=== PATIENT | male | born 1950 | race Caucasian/White ===

== ENCOUNTER 2018-11-06 12:49 | Emergency (ER) | payer OTHER, SELFPAY ==
[2018-11-06] VITALS (66 sets, daily range): BP systolic 91–120; BP diastolic 44–81; PULSE 76–94; RESP 14–34; TEMP 37; O2SAT 92–98
[2018-11-06 13:13] LABS: Lactate 1.7 mmol/L (0.6-1.4)
[2018-11-06 13:14] LABS: Abs Immature Grans 0.02 k/cumm (0.0-0.09); Absolute Basophil Count 0.01 k/cumm (0.0-0.2); Absolute Lymphocyte Count 0.35 k/cumm (1.2-3.4); Absolute Monocyte Count 1.08 k/cumm (0.11-0.7); Absolute Neutrophil Count 12.58 k/cumm (1.2-6.7); Basophils % 0.1; Eosinophils % 0.1; HCT 42.4 % (40.0-50.0); Immature Grans % 0.1; Lymphocytes % 2.5; Mean Corpuscular Hemoglobin 27.2 pg (27.0-33.0); Mean Corpuscular Volume 82.3 fL (80-95); Mean Platelet Volume 9.1 fL (8.0-11.0); Monocytes % 7.7; Neutrophils % 89.5; Platelet Count 304 x1000/uL (130-400); RBC 5.15 m/cumm (4.50-6.00); RBC Distribution Width 16.1 % (11.8-14.1); White Blood Cell Count 14.06 k/cumm (4.4-10.8)
[2018-11-06 13:15] LABS: Absolute Eosinophil Count 0.01 k/cumm (0.0-0.7)
[2018-11-06 13:29] LABS: ALT 22 U/L (12-78); AST 19 U/L (15-37); Alkaline Phosphatase 141 U/L (46-116); Anion Gap 11.5 mmol/L (3-11); BUN 36 mg/dL (7-18); Bilirubin, Total 0.7 mg/dL (0.2-1.0); CO2 27.5 mmol/L (21.0-32.0); CREATININE 1.35 mg/dL (0.70-1.30); Calcium 9.7 mg/dL (8.5-10.1); Chloride 96 mmol/L (98-107); Glucose 118 mg/dL (70-100); Lipase 73 U/L (73-393); Potassium 3.7 mmol/L (3.5-5.1); Sodium 135 mmol/L (136-145); Total Protein 8.6 g/dL (6.4-8.2)
[2018-11-06 13:31] LABS: Bilirubin Negative (Negative); Blood Small (Negative); Clarity Sl Cloudy; Glucose Negative (Negative); Ketones Negative (Negative); Leukocyte Esterase Small (Negative); Nitrite Negative (Negative); Urobilinogen 0.2 EU/dL (Up TO 0.2)
[2018-11-06 13:43] LABS: Bacteria Moderate HPF (Negative); C & S Indicated? Yes; Casts Negative LPF (Negative); Crystals Negative HPF (Negative); Epithelial Cells Few HPF (Negative); Mucus Moderate (Negative); Other Cells Few Renal (Negative); RBC 0-2 (0-2); WBC >50 HPF (0-5)
[2018-11-06 13:57] LABS: D-Dimer 3788 ng/mlFEU (<500)
--- NOTE | 2018-11-06 14:27 | DI.CT_ITS ---
SYMPTOMS/DIAGNOSIS: SHORTNESS OF BREATH, HYPOXIA, RUQ PAIN CT SCAN OF THE CHEST, ABDOMEN AND PELVIS: CT SCAN OF THE ABDOMEN AND PELVIS: The liver is normal in size. No evidence of a hepatic mass is seen. The portal, superior mesenteric and splenic veins are patent. The gallbladder is distended. There is gallbladder wall thickening and pericholecystic inflammatory changes. There are stones seen within the gallbladder. There is a stone which appears to lie in the cystic duct. The pancreas is unremarkable, as are the spleen and adrenal glands. The kidneys show normal and symmetric enhancement. There is a nonobstructing stone in the mid pole of the right kidney. There is mild prominence of the right renal collecting system, but no ureteral stone is present. The urinary bladder is intact. The reproductive organs are unremarkable. There is a large amount of stool in the colon, suggesting constipation. No evidence of bowel obstruction, inflammation or infection. The aorta is of normal caliber. No significant abdominal or pelvic adenopathy, ascites or pneumoperitoneum is present. Degenerative changes are seen in the spine. IMPRESSION: Cholelithiasis with findings suggestive of acute cholecystitis. CT SCAN OF THE CHEST: CT angiography was performed with multi slice acquisition and multi planar and 3D reconstruction. CT scan of the chest is performed according to the pulmonary embolus protocol. There is no evidence of a pulmonary embolus. The thoracic aorta is of normal caliber. No aneurysm or dissection is seen. The heart size is within normal limits. No significant pericardial effusion is seen. No evidence of right ventricular dysfunction is seen. No mediastinal adenopathy is present. No pleural effusion or pneumothorax is identified. Dependent atelectatic changes are seen in the bases. No focal consolidating infiltrates are seen. The tracheobronchial tree is unremarkable. Degenerative changes are seen in the spine. IMPRESSION: No evidence of a pulmonary embolus, thoracic aortic dissection or aneurysm.
[2018-11-06] MEDS: Normal Saline 1,000 ML 1000 ML IV (15:00)
--- NOTE | 2018-11-06 15:28 | W.ED.GENAD ---
Discharge Plan Disposition Patient Disposition: [facility] Condition: Stable Discharge Details Chief Complaint: Abd Prob Clinical Impression: Acute cholecystitis Reason For Visit: RUQ pain Primary Care Provider: Unknown,Unknown ED Provider: Darci Lake Home Meds and New Rx's Prescriptions: No Action melatonin 3 MG tablet 3 mg PO HS RF: 0 pantoprazole [Protonix] 40 MG tablet,delayed release (DR/EC) 40 mg PO DAILY RF: 0 nitroglycerin 0.4 MG tablet, sublingual 0.4 mg Sublingual RF: 0 oxycodone-acetaminophen [Percocet] 1 EACH tablet 1 tab-cap PO Q4H PRN RF: 0 meclizine 25 MG tablet,chewable 25 mg PO QID RF: 0 SENNA S TABLET 1 EACH tablet 2 tab-cap PO BID RF: 0 atorvastatin 40 mg Tablet 40 mg PO DAILY RF: 0 acetaminophen 325 mg Tablet 650 mg PO Q4H PRN PRNRF: 0 carvedilol 6.25 mg Tablet 6.25 mg PO BID RF: 0 amlodipine [Norvasc] 5 mg Tablet 5 mg PO DAILY RF: 0 docusate sodium 100 mg Capsule 100 mg PO BID RF: 0 gabapentin 300 mg Capsule 300 mg PO HS RF: 0 gabapentin 100 mg Capsule 100 mg PO BID RF: 0 Maalox Maximum Strength 400-400-40 mg/5 mL Suspension 30 ml PO Q6H PRN PRNRF: 0 Discharge Data Discharge Date/Time-TO BE ENTERED AT DEPARTURE: 11/06/18 21:11 Medical Decision Making <Jadon Moreland NP - Last Filed: 11/09/18 11:12> Patient presenting to the emergency department for chief complaint of right upper quadrant pain. Patient states that he has been uncomfortable for the past 4 days and has not been improving. Patient does state also some shortness of breath and cough that has also been going on during the same timeframe. Patient reports not being able to get out of bed and being pretty immobile for this amount of time as well. Physical exam shows stable nontoxic patient with vital signs showing slight hypoxia, right lower lung rhonchi with diminished bilateral lung sounds in lower mata, right upper quadrant tenderness without obvious Olvera sign but diffuse pain making it difficult to fully assess. Plan to check labs, give IV fluids. Patient does state fever but no fever is present at this time. Review of labs does show a leukocytosis with some shift, positive d-dimer, mildly elevated lactate, otherwise nondiagnostic labs. Review of urinalysis does show signs of urinary tract infection but before antibiotic choice plan to rule out pneumonia as I feel that this may change which antibiotic I would use for urinary tract. Pending CTA of chest and abdomen pelvis with contrast care of patient was transferred to Dr. Shan Lake for further treatment, stabilization, and disposition as needed per HPI <Jadon Moreland NP - Last Filed: 11/09/18 11:12> General Mode of arrival: EMS. Date/Time Provider Initiated Documentation: 11/06/18 12:55. Limitations to Documentation: no limitations. Information obtained by: patient and RN notes reviewed. History of Present Illness 68 year old M presents to the emergency department with the chief complaint of Right upper quadrant pain, described as moderate, with intensity rated at 6. Quality is described as aching, and is localized to the abdomen. Patient started experiencing this day(s) (4) and it has been constant. No relieving factors improve symptom(s), Related Data Home Medications Medication Instructions Recorded Confirmed Senna S Tablet 2 tab-cap PO BID tab-cap 03/28/18 11/06/18 meclizine 25 mg PO QID tab-cap 03/28/18 11/06/18 melatonin 3 mg PO HS 03/28/18 11/06/18 nitroglycerin 0.4 mg SUBLINGUAL 03/28/18 oxycodone-acetaminophen [Percocet 1 tab-cap PO Q4H PRN tab-cap 03/28/18 11/06/18 7.5-325 Mg Tablet] pantoprazole [Protonix] 40 mg PO DAILY tab-cap 03/28/18 11/06/18 acetaminophen 650 mg PO Q4H PRN PRN 11/06/18 11/06/18 alum-mag hydroxide-simeth [Maalox 30 ml PO Q6H PRN PRN 11/06/18 11/06/18 Maximum Strength] amlodipine [Norvasc] 5 mg PO DAILY 11/06/18 11/06/18 atorvastatin 40 mg PO DAILY 11/06/18 11/06/18 carvedilol 6.25 mg PO BID 11/06/18 11/06/18 docusate sodium 100 mg PO BID 11/06/18 11/06/18 gabapentin 100 mg PO BID 11/06/18 11/06/18 gabapentin 300 mg PO HS 11/06/18 11/06/18 Allergies Allergy/AdvReac Type Severity Reaction Status Date / Time hydrochlorothiazide Allergy Unknown Unverified 03/28/18 10:24 tuna oil Allergy Unverified 11/06/18 12:57 General Stated Complaint: Abd Prob MEGAN: 3 Review of Systems <Jadon Moreland NP - Last Filed: 11/09/18 11:12> Constitutional Denies chills, Denies fever(s) and Reports poor appetite Cardiovascular Denies chest pain and Reports dyspnea Respiratory Reports cough and Reports dyspnea Gastrointestinal Reports as per HPI, Reports abdominal pain, Denies melena, Denies change in bowel habits, Reports constipation, Denies diarrhea, Denies nausea and Denies vomiting Genitourinary Denies hematuria, Denies difficulty urinating, Denies urinary hesitancy, Denies urinary incontinence and Denies urinary urgency Integumentary/Breasts Denies rash PFSH <Jadon Moreland NP - Last Filed: 11/09/18 11:12> Medical History AMI (acute myocardial infarction) Bladder cancer CAD (coronary artery disease) History of throat cancer Hyperlipidemia Ischemic cardiomyopathy MELANY (obstructive sleep apnea) Psoriasis Surgical History Cholecystectomy Family History Mother Neoplasm Father No problems noted. Sister No problems noted. Social History Smoking and Tabacco status: Former Tobacco Use Exam <Jadon Moreland NP - Last Filed: 11/09/18 11:12> Const General: cooperative Orientation: alert, awake and oriented x3 Resp Effort & Inspection: normal respiratory effort and able to speak in complete sentences Auscultation: rhonchi right lower Cardio Rate: regular rate Rhythm: regular rhythm Heart Sounds: S1 normal and S2 normal GI Palpation: soft, no hepatosplenomegaly, not firm, no guarding, no masses, no pulsatile masses, not rigid, no splenomegaly and tender in the RUQ; not at McBurney's point and Rovsing's sign negative Auscultation: normal bowel sounds Back/Spine/Pelvis Back: no CVA tenderness Neuro General: alert, awake, oriented x3, gait normal and moves all extremities Course <Jadon Moreland FELLING MACHINE OPERATOR - Last Filed: 11/09/18 11:12> Vital Signs Temperature 37 C 11/06/18 12:51 Pulse 88 11/06/18 12:51 Respiratory Rate 14 11/06/18 12:51 Blood Pressure 108/65 11/06/18 12:51 Pulse Oximetry 93 L 11/06/18 12:51 Temperature 37 C 11/06/18 12:51 Temperature Source Temporal Artery Scan 11/06/18 12:51 Pulse 88 11/06/18 12:51 Respiratory Rate 14 11/06/18 12:51 Respiratory Effort Non-Labored 11/06/18 13:01 Blood Pressure 108/65 11/06/18 12:51 Pulse Oximetry 93 L 11/06/18 12:51 Oxygen Delivery Method Room Air 11/06/18 12:51 Oxygen Flow Rate 0 11/06/18 12:51 Pain Level 8 11/06/18 13:01 Lab/Test Results Lab/Test Results: 11/06/18 13:25 Urine - Reflex from Ua Urine Culture - Pending Laboratory Tests Range/Units 11/06/18 11/06/18 11/06/18 13:00 13:00 13:00 WBC (4.4-10.8) k/cumm 14.06 H RBC (4.50-6.00) m/cumm 5.15 Hgb (13.5-17.5) g/dL 14.0 Hct (40.0-50.0) % 42.4 MCV (80-95) fL 82.3 MCH (27.0-33.0) pg 27.2 MCHC (32.0-36.0) g/dL 33.0 RDW (11.8-14.1) % 16.1 H Plt Count (130-400) x1000/uL 304 MPV (8.0-11.0) fL 9.1 Immature Gran % 0.1 Neutrophils % 89.5 Lymphocytes % 2.5 Monocytes % 7.7 Eosinophils % 0.1 Basophils % 0.1 Absolute Neutrophils (1.2-6.7) k/cumm 12.58 H Absolute Lymphocytes (1.2-3.4) k/cumm 0.35 L Absolute Monocytes (0.11-0.7) k/cumm 1.08 H Absolute Eosinophils (0.0-0.7) k/cumm 0.01 Absolute Basophils (0.0-0.2) k/cumm 0.01 D-Dimer (<500) ng/mlFEU Sodium (136-145) mmol/L 135 L Potassium (3.5-5.1) mmol/L 3.7 Chloride (98-107) mmol/L 96 L Carbon Dioxide (21.0-32.0) mmol/L 27.5 Anion Gap (3-11) mmol/L 11.5 H BUN (7-18) mg/dL 36 H Creatinine (0.70-1.30) mg/dL 1.35 H Estimated GFR/1.73 m2 (mL/min/1.73m2) 52.40 Glucose (70-100) mg/dL 118 H Lactate (0.6-1.4) mmol/L 1.7 H Calcium (8.5-10.1) mg/dL 9.7 Total Bilirubin (0.2-1.0) mg/dL 0.7 AST (15-37) U/L 19 ALT (12-78) U/L 22 Alkaline Phosphatase (46-116) U/L 141 H Total Protein (6.4-8.2) g/dL 8.6 H Albumin (3.4-5.0) g/dL 3.0 L Lipase (73-393) U/L 73 Urine Color (Yellow) Urine Clarity Urine pH (5-8) Ur Specific Shorter (1.005-1.025) Urine Protein (Negative) mg/dL Urine Ketones (Negative) mg/dL Urine Blood (Negative) Urine Nitrite (Negative) Urine Bilirubin (Negative) Urine Urobilinogen (Up TO 0.2) EU/dL Ur Leukocyte Esterase (Negative) Urine RBC (0-2) Urine WBC (0-5) HPF Ur Epithelial Cells (Negative) HPF Urine Crystals (Negative) HPF Urine Bacteria (Negative) HPF Urine Casts (Negative) LPF Urine Mucus (Negative) Urine Other (Negative) Ur Culture Indicated? Urine Glucose (Negative) mg/dL Range/Units 11/06/18 11/06/18 11/06/18 13:00 13:03 13:25 WBC (4.4-10.8) k/cumm RBC (4.50-6.00) m/cumm Hgb (13.5-17.5) g/dL Hct (40.0-50.0) % MCV (80-95) fL MCH (27.0-33.0) pg MCHC (32.0-36.0) g/dL RDW (11.8-14.1) % Plt Count (130-400) x1000/uL MPV (8.0-11.0) fL Immature Gran % Neutrophils % Lymphocytes % Monocytes % Eosinophils % Basophils % Absolute Neutrophils (1.2-6.7) k/cumm Absolute Lymphocytes (1.2-3.4) k/cumm Absolute Monocytes (0.11-0.7) k/cumm Absolute Eosinophils (0.0-0.7) k/cumm Absolute Basophils (0.0-0.2) k/cumm D-Dimer (<500) ng/mlFEU 3788 H Sodium (136-145) mmol/L Potassium (3.5-5.1) mmol/L Chloride (98-107) mmol/L Carbon Dioxide (21.0-32.0) mmol/L Anion Gap (3-11) mmol/L BUN (7-18) mg/dL Creatinine (0.70-1.30) mg/dL Estimated GFR/1.73 m2 (mL/min/1.73m2) Glucose (70-100) mg/dL Lactate (0.6-1.4) mmol/L Calcium (8.5-10.1) mg/dL Total Bilirubin (0.2-1.0) mg/dL AST (15-37) U/L ALT (12-78) U/L Alkaline Phosphatase (46-116) U/L Total Protein (6.4-8.2) g/dL Albumin (3.4-5.0) g/dL Lipase (73-393) U/L Cancelled Urine Color (Yellow) Yellow Urine Clarity Sl cloudy Urine pH (5-8) 6.0 Ur Specific Shorter (1.005-1.025) 1.020 Urine Protein (Negative) mg/dL 100 H Urine Ketones (Negative) mg/dL Negative Urine Blood (Negative) Small H Urine Nitrite (Negative) Negative Urine Bilirubin (Negative) Negative Urine Urobilinogen (Up TO 0.2) EU/dL 0.2 Ur Leukocyte Esterase (Negative) Small H Urine RBC (0-2) 0-2 Urine WBC (0-5) HPF >50 Ur Epithelial Cells (Negative) HPF Few Urine Crystals (Negative) HPF Negative Urine Bacteria (Negative) HPF Moderate Urine Casts (Negative) LPF Negative Urine Mucus (Negative) Moderate Urine Other (Negative) Few renal Ur Culture Indicated? Yes Urine Glucose (Negative) mg/dL Negative Sign Out <Jadon Moreland NP - Last Filed: 11/09/18 11:12> Sign Out Data: Sign Out Comment: Patient signed out to Dr. Shan Lake pending results of CTA abdomen pelvis scan for concern of right upper quadrant pain, positive d-dimer, shortness of breath and hypoxia. Review of labs does show UTI and leukocytosis with concern of shift. Last updated by Jadon Moreland NP at 11/06/18 16:12 Post-Handoff Eval: pt remains stable, CT chest shows no acute findings, ct abd/pelvis shows acute cholecystitis. We are full here and [facility] Dr. Ulloa is the accepting provider. Pt's [facility] from [facility] which he confirms but also states comfort measures only. Pt is caox4 and has capacity to make his own decisions and states he is not comfort measures and is okay with abx and also surgery if needed
[2018-11-06] MEDS: Omnipaque 350 MG/ML 100 ML BTL IJ (16:01)
[2018-11-06] MEDS: Normal Saline Flush 10 ML SYR IVP (16:02)
--- NOTE | 2018-11-06 16:44 | DI.VRAD_ITS ---
EXAM: CT Angiography Chest With Contrast EXAM DATE/TIME: 11/06/2018 4:13 PM CLINICAL HISTORY: 68 years old, male; Signs and symptoms; Other: Ruq pain for 4 days; Cough and other: Shortness of breath, hypoxia; Cough with hemorrhage; Patient HX: HX of bladder and throat CA TECHNIQUE: Axial computed tomographic angiography images of the chest with intravenous contrast using CT angiography protocol. All CT scans at this facility use at least one of these dose optimization techniques: automated exposure control; mA and/or kV adjustment per patient size (includes targeted exams where dose is matched to clinical indication); or iterative reconstruction. Coronal and sagittal reformatted images were created and reviewed. MIP reconstructed images were created and reviewed. CONTRAST: 100 ml of Omnipaque 350 administered intravenously. COMPARISON: No relevant prior studies available. FINDINGS: Minimal bibasilar consolidation most likely representing atelectasis. No significant pleural effusion. Mediastinum unremarkable. Bony structures within normal limits for age. IMPRESSION: No evidence of significant cardiopulmonary disease. EXAM: CT Abdomen and Pelvis With Contrast EXAM DATE/TIME: 11/06/2018 4:13 PM CLINICAL HISTORY: 68 years old, male; Signs and symptoms; Other: Ruq pain for 4 days; Cough and other: Shortness of breath, hypoxia; Cough with hemorrhage; Patient HX: HX of bladder and throat CA TECHNIQUE: Axial computed tomography images of the abdomen and pelvis with intravenous contrast. All CT scans at this facility use at least one of these dose optimization techniques: automated exposure control; mA and/or kV adjustment per patient size (includes targeted exams where dose is matched to clinical indication); or iterative reconstruction. Coronal and sagittal reformatted images were created and reviewed. CONTRAST: 100 ml of Omnipaque 350 administered intravenously. COMPARISON: No relevant prior studies available. FINDINGS: Cholelithiasis and stone within the cystic duct with mild gallbladder wall thickening and slight surrounding inflammation consistent with acute cholecystitis. Mild dilatation of the right intrarenal collecting system and right ureter without definite evidence of an ongoing obstructing process. Moderate fecal material within the colon suggesting some degree of constipation. No evidence of bowel obstruction. No significant free abdominal or pelvic fluid. IMPRESSION: Findings consistent with acute cholecystitis. THIS REPORT CONTAINS FINDINGS THAT MAY BE CRITICAL TO PATIENT CARE. The findings were verbally communicated via telephone conference with AMINATA GLASER at 4:43 PM [place] 2/10/2019The findings were acknowledged and understood. Dictated and Authenticated by: Mike Schrader MD. Ordering:DIO Diop MD
[2018-11-06] MEDS: PIPERACILLIN/TAZO 4.5 GM in Normal Saline 100 ML IVPB (17:25)
--- NOTE | 2018-11-06 19:11 | NUR.NOTE ---
Nursing Note: [facility] notified that [facility] is being transferred to [facility]. Pt requested that I update daughter as well. Notified daughter at this time.
== END 2018-11-06 21:11 | disposition short-term general hospital (02) ==
PROVIDERS: Nurse Practitioner Family; Emergency Provider Emergency Medicine
DX: R05 Cough (principal); R10.31 Right lower quadrant pain; R09.02 Hypoxemia; K81.0 Acute cholecystitis; R79.1 Abnormal coagulation profile; I10 Essential (primary) hypertension
CPT/HCPCS: 36415; 71275; 74177; 80053; 83690; 99285; 81003; 81015; 83605; 85025; 85379; 87086; J2543; J3490